=== PATIENT | male | born 1975 | race Caucasian/White ===

== ENCOUNTER 2023-10-10 11:18 | Emergency (ER) | payer MEDICAID, SELFPAY ==
[2023-10-10 11:35] VITALS: BP 152/89; PULSE 80; RESP 18; TEMP 36.3; O2SAT 99; BMI 28.8
[2023-10-10 12:49] LABS: COVID-19 Test Negative (Negative); IDNOW Serial# 08D9AD1C
[2023-10-10 12:52] LABS: IDNOW Serial# 152EDE1D; Influenza A Negative (Negative); Influenza B2 Negative (Negative)
--- NOTE | 2023-10-10 15:40 | ED.GENADULT ---
HPI - General Adult General Chief complaint: Upper Respiratory Symptoms Stated complaint: Sinus infection Time Seen by Provider: 10/10/23 14:16 History of Present Illness HPI narrative: patient has complaint of a painful right nostril after several days of runny nose and cold symptoms, he says it is swollen on the inside and increasingly painful, denies fever shortness of breath vomiting or any other symptoms He has no sore throat he is able to swallow easily no significant cough no shortness of breath Related Data Previous Rx's Medication Instructions Recorded cephalexin 500 mg tablet 500 mg PO QID 7 days #28 tabs 10/10/23 doxycycline hyclate 100 mg capsule 100 mg PO BID 7 days #14 caps 10/10/23 Allergies Allergy/AdvReac Type Severity Reaction Status Date / Time No Known Allergies Allergy Verified 10/10/23 11:34 [No Known Allergies*] [facility], [facility] Past Medical History Source: nursing notes reviewed Social History Social History Advance Directives: No Advance Directives Information Provided: No Physical Exam ED Vital Signs: Vital Signs - 24 hr 10/10/23 11:35 Temperature 97.4 F Pulse Rate 80 Respiratory Rate 18 Blood Pressure 152/89 H Pulse Oximetry 99 Oxygen Delivery Method Room Air BMI result Body Mass Index 28.8 eyes no redness or discharge, no swelling around orbits no redness or bound orbits Pupils equal round reactive to light and extraocular motions are intact and full The external skin of the face there is no redness swelling wound were fluctuant area The nose exam there is no sinus tenderness Looking in the nose the right side of the nasal septum is very red it is indurated there is no obvious discharge no obvious fluctuance no obvious abscess, the right side of the nasal septum is tender to the touch The pharynx is clear without redness swelling or exudate, no evidence of dental infection, no trismus no drooling voice is normal Neck is supple Respiratory no distress Skin no rash Extremities full range motion x4 Course Course Course Narrative: patient with main complaint of a painful area on the right side of the nasal septum and some swelling in that area Exam showed some redness and induration but no fluctuant area that could be incised or aspirated, it was tender and is treated as a possible cellulitis with Keflex doxycycline and mupirocin ointment Medical Decision Making Lab Data Labs: Lab Results 10/10/23 Range/Units 12:27 COVID-19 ([facility]) Negative (Negative) COVID-19 Clin Com See Note Influenza Type A ([facility]) Negative (Negative) Influenza Type B ([facility]) Negative (Negative) Influenza A & B Note See Note Discharge Plan Discharge Clinical Impression: Cellulitis Patient Disposition: Home, Self-Care Additional Instructions: the area inside the right side of her nose was very red and mildly swollen and tender, it did not seem at this time like there was an abscess or anything I can drain We are starting antibiotics and mupirocin cream Return for recheck with us or your doctor in 2-3 days if not improved, return any time for spreading redness worse pain and swelling fever any worse condition or any concerns Prescriptions: New doxycycline hyclate 100 mg capsule 100 mg PO BID 7 Days Qty: 14 0RF cephalexin 500 mg tablet 500 mg PO QID 7 Days Qty: 28 0RF Stand Alone Forms: Work/School Release
[2023-10-10] MEDS: cephALEXin 500 MG CAPSULE PO (16:22)
[2023-10-10] MEDS: Doxycycline Monohydrate 100 MG CAPSULE PO (16:22)
== END 2023-10-10 17:18 | disposition home or self-care (01) ==
PROVIDERS: Physician Assistant Medical; Emergency Provider Emergency Medicine
DX: J34.0 Abscess, furuncle and carbuncle of nose (principal); Z11.52 Encounter for screening for COVID-19
CPT/HCPCS: 87502; 87635; 99283

== ENCOUNTER 2024-02-27 00:29 | Emergency (ER) | payer MEDICAID, SELFPAY ==
--- NOTE | 2024-02-27 | ECG_ITS ---
Test Reason : CP Blood Pressure : / mmHG Vent. Rate : 087 BPM Atrial Rate : 087 BPM P-R Int : 162 ms QRS Dur : 092 ms QT Int : 356 ms P-R-T Axes : 046 021 046 degrees QTc Int : 428 ms Normal sinus rhythm Normal ECG No previous ECGs available Referred By: Generic ED Physician Electronically Signed By:SERGEY PERRY MD
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
[2024-02-27 00:34] VITALS: BP 129/88; PULSE 90; RESP 18; TEMP 36.2; O2SAT 97; BMI 29.1
[2024-02-27 00:57] VITALS: BP 131/80; PULSE 79; RESP 14; TEMP 36.8; O2SAT 98
[2024-02-27 01:35] LABS: MANUAL DIFF FLAG NO
[2024-02-27 01:36] LABS: Basophils Absolute Auto 0.1 X10*3/uL (0.0-0.2); Basophils Percent Auto 0.6 % (0-2); Eosinophils Absolute Auto 0.5 X10*3/uL (0.0-0.4); Eosinophils Percent Auto 5.5 % (0-4); Hematocrit 38.1 % (42.0-52.0); Hemoglobin 13.5 g/dl (14.0-18.0); Imm Gran Abs Auto 0.02 X10*3/uL (0.00-0.03); Imm Gran Pct Auto 0.2 % (0.0-0.4); Lymphocytes Absolute Auto 2.6 X10*3/uL (1.2-4.9); Mean Corpuscular HGB Conc 35.4 g/dl (31.0-36.0); Mean Corpuscular Hemoglobin 30.7 pg (27.0-33.0); Mean Corpuscular Volume 86.6 fL (80.0-98.0); Mean Platelet Volume 9.8 fL (9.4-12.4); Monocytes Absolute Auto 0.5 X10*3/uL (0.1-1.2); Neutrophils Absolute Auto 5.2 x10*3/uL (2.0-8.3); Neutrophils Percent Auto 58.7 % (45-73); Platelet Count 235 X10*3/uL (160-400); Red Cell Distribution Width 12.9 % (11.0-16.0); White Blood Count 8.9 X10*3/uL (4.8-10.8)
[2024-02-27 01:50] LABS: Anion Gap 14 (12-20); Blood Urea Nitrogen 17 mg/dL (9-16); Calcium 8.9 mg/dL (8.4-10.2); Carbon Dioxide 24 mmol/L (22-29); Chloride 110 mmol/L (96-108); Creatinine Clr Calc Pharmacy 123.5; Estimated Glomerular Filt Rate > 60; Glucose Random 94 mg/dL (60-115); Potassium 3.9 mmol/L (3.3-5.1); Sodium 144 mmol/L (135-145)
[2024-02-27 02:00] LABS: Troponin-I High Sensitivity < 2.7 ng/L (<3.5-35.0)
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
[2024-02-27 03:16] VITALS: BP 127/80; PULSE 87; RESP 16; TEMP 36.6; O2SAT 96
[2024-02-27 04:23] VITALS: BP 127/80; PULSE 64; RESP 16; TEMP 36.7; O2SAT 90
[2024-02-27 07:06] VITALS: BP 142/88; PULSE 76; RESP 12; TEMP 37.1; O2SAT 99
== END 2024-02-27 07:12 | disposition home or self-care (01) ==
PROVIDERS: Emergency Provider Emergency Medicine
DX: S20.219A Contusion of unspecified front wall of thorax, initial encounter (principal); V86.56XA Driver of dirt bike or motor/cross bike injured in nontraffic accident, initial encounter; Y93.89 Activity, other specified; Y92.89 Other specified places as the place of occurrence of the external cause; Y99.9 Unspecified external cause status; R55 Syncope and collapse; R07.9 Chest pain, unspecified
CPT/HCPCS: 36415; 71046; 73030; 80048; 84484; 85025; 93005; 99283; 99285

== ENCOUNTER → 2024-02-27 00:40 | Outpatient (BNV) | payer MEDICAID, SELFPAY | PROVIDERS: Emergency Provider Emergency Medicine; Visit Provider Internal Medicine Cardiovascular Disease | DX: R07.9 Chest pain, unspecified (principal) | CPT/HCPCS: 93010 ==